=== PATIENT | female | born 1990 | race Caucasian/White ===

== ENCOUNTER → 2019-02-20 | Outpatient (CLI) | payer MEDICAID ==
[2019-02-20 14:19] LABS: HEMATOCRIT 41.8 % (36.0-47.0); HEMOGLOBIN 13.3 g/dl (12.0-15.5); MEAN CORPUSCULAR HEMOGLOBIN 29.9 pg (27.0-33.0); MEAN CORPUSCULAR HGB CONC 31.8 g/dl (32.0-36.5); MEAN CORPUSCULAR VOLUME 93.9 fl (80.0-96.0); PLATELET COUNT, AUTOMATED 415 10^3/uL (150-450); RED BLOOD COUNT 4.45 10^6/uL (4.00-5.40); WHITE BLOOD COUNT 14.4 10^3/uL (4.0-10.0)
[2019-02-20 14:49] LABS: ALBUMIN 4.1 GM/DL (3.2-5.2); ALT/SGPT 47 U/L (12-78); BILIRUBIN,TOTAL 0.3 MG/DL (0.2-1.0); BLOOD UREA NITROGEN 11 MG/DL (7-18); CALCIUM LEVEL 9.3 MG/DL (8.5-10.1); CARBON DIOXIDE LEVEL 27 MEQ/L (21-32); CHLORIDE LEVEL 104 MEQ/L (98-107); CREATININE FOR GFR 0.87 MG/DL (0.55-1.30); GLOMERULAR FILTRATION RATE > 60.0 (>60); GLUCOSE, FASTING 97 MG/DL (70-100); POTASSIUM SERUM 4.3 MEQ/L (3.5-5.1); SODIUM LEVEL 137 MEQ/L (136-145); TOTAL PROTEIN 7.4 GM/DL (6.4-8.2)
[2019-02-20 15:43] LABS: CHLAMYDIA DNA AMPLIFICATION NEGATIVE (NEGATIVE); GC DNA AMPLIFICATION NEGATIVE (NEGATIVE)
[2019-02-21 16:19] LABS: HCG, SERUM QUALITATIVE NEGATIVE (NEGATIVE)
[2019-02-21 18:14] LABS: HEPATITIS B SURFACE ANTIGEN NEGATIVE (NEGATIVE)
[2019-02-21 18:42] LABS: HIV 1&2 SCREEN CENTAUR NEGATIVE (NEGATIVE)
[2019-02-21 19:32] LABS: HEPATITIS C VIRUS ABY INDEX > 11.0 INDEX (<0.8)
== END ==
LOC: M PLALAB 11:13
PROVIDERS: ATTEND Family Medicine
DX: Z00.00 Encounter for general adult medical examination without abnormal findings (principal)

== ENCOUNTER → 2019-02-25 | Outpatient (CLI) | payer OTHER, MEDICAID | LOC: M LAB 10:23 | PROVIDERS: ATTEND Physician Assistant Medical | DX: F31.9 Bipolar disorder, unspecified (principal) ==

== ENCOUNTER → 2019-02-25 | Outpatient (CLI) | payer OTHER, MEDICAID ==
--- NOTE | 2019-02-25 21:21 | ECGEPIP ---
[facility] Test Date: 2019-02-25 Pat Name: MACIEJ PALMA Department: Room: - Gender: Female [employer]: ROBERTO CARLOS : 1990 Requested By: Parminder Rosas Order Number: [id number] Reading MD: Chino Chowdhury Measurements Intervals [place] Rate: 76 P: 56 DE: 149 QRS: 61 QRSD: 90 T: 46 QT: 343 QTc: 386 Interpretive Statements SINUS RHYTHM WITH OCCASIONAL ECTOPIC PREMATURE COMPLEXES Nonspecific T wave abnormality Comparison tracing not on file Electronically Signed on 02-25-2019 21:21:26 EST by Chino Chowdhury
== END ==
LOC: M EKG 10:28
PROVIDERS: ATTEND Family Medicine
DX: F11.90 Opioid use, unspecified, uncomplicated (principal)

== ENCOUNTER → 2019-03-21 | Outpatient (CLI) | payer MEDICAID ==
[2019-03-21 10:46] LABS: HEMATOCRIT 43.7 % (36.0-47.0); HEMOGLOBIN 13.5 g/dl (12.0-15.5); MEAN CORPUSCULAR HGB CONC 30.9 g/dl (32.0-36.5); MEAN CORPUSCULAR VOLUME 93.8 fl (80.0-96.0); PLATELET COUNT, AUTOMATED 339 10^3/uL (150-450); RED BLOOD COUNT 4.66 10^6/uL (4.00-5.40)
[2019-03-21 11:13] LABS: ALBUMIN 3.9 GM/DL (3.2-5.2); ALT/SGPT 31 U/L (12-78); BILIRUBIN,TOTAL 0.3 MG/DL (0.2-1.0); BLOOD UREA NITROGEN 11 MG/DL (7-18); CARBON DIOXIDE LEVEL 29 MEQ/L (21-32); CHLORIDE LEVEL 105 MEQ/L (98-107); CREATININE FOR GFR 0.88 MG/DL (0.55-1.30); GLOMERULAR FILTRATION RATE > 60.0 (>60); GLUCOSE, FASTING 78 MG/DL (70-100); POTASSIUM SERUM 4.4 MEQ/L (3.5-5.1); SODIUM LEVEL 138 MEQ/L (136-145); TOTAL PROTEIN 7.5 GM/DL (6.4-8.2)
[2019-03-21 11:20] LABS: HCG, SERUM QUALITATIVE NEGATIVE (NEGATIVE)
[2019-03-21 11:35] LABS: HEPATITIS B SURFACE ANTIGEN NEGATIVE (NEGATIVE)
[2019-03-21 12:05] LABS: HIV 1&2 SCREEN CENTAUR NEGATIVE (NEGATIVE)
[2019-03-21 12:06] LABS: CHLAMYDIA DNA AMPLIFICATION NEGATIVE (NEGATIVE); GC DNA AMPLIFICATION NEGATIVE (NEGATIVE)
[2019-03-21 15:11] LABS: HEPATITIS C VIRUS ABY INDEX > 11.0 INDEX (<0.8)
== END ==
LOC: M LAB 09:49
PROVIDERS: ATTEND Family Medicine
DX: F11.10 Opioid abuse, uncomplicated (principal)

== ENCOUNTER → 2019-03-27 | Outpatient (CLI) | payer OTHER ==
[2019-03-31 14:11] LABS: HEPATITIS C QUANTITATION HCV Not Detected IU/mL (.)
== END ==
LOC: M LAB 10:31
PROVIDERS: ATTEND Psychiatry & Neurology Addiction Medicine
DX: B18.2 Chronic viral hepatitis C (principal)

== ENCOUNTER → 2019-04-16 | Outpatient (CLI) | payer OTHER ==
[2019-04-16 15:12] LABS: HEPATITIS C VIRUS ABY INDEX > 11.0 INDEX (<0.8)
== END ==
LOC: M LAB 12:06
PROVIDERS: ATTEND Physician Assistant
DX: A53.9 Syphilis, unspecified (principal)

== ENCOUNTER → 2019-04-22 | Outpatient (CLI) | payer OTHER | LOC: M LAB 15:32 | PROVIDERS: ATTEND Family Medicine | DX: F31.9 Bipolar disorder, unspecified (principal) ==

== ENCOUNTER → 2019-07-21 | Outpatient (CLI) | payer OTHER | LOC: M PLALAB 09:48 | PROVIDERS: ATTEND Nurse Practitioner Psychiatric/Mental Health | DX: Z51.81 Encounter for therapeutic drug level monitoring (principal); Z79.899 Other long term (current) drug therapy ==